=== PATIENT | female | born 1990 | race Caucasian/White ===

== ENCOUNTER 2018-01-04 20:47 | Emergency (ER) | payer OTHER ==
[~2018-01-04] VITALS: Ht 162.6 cm; Wt 100.6 kg
[2018-01-04 21:58] LABS: HEMATOCRIT 43.8 % (36.0-46.0); HEMOGLOBIN 14.6 G/DL (11.9-15.5); MCH 28.7 PG (29.0-34.0); MCHC 33.3 G/DL (30.0-36.0); MCV 86.1 FL (83-99); RBC DIS.WIDTH-CV 13.3 % (11.8-14.6); RBC DIS.WIDTH-SD 41.6 % (39-53); RED BLOOD COUNT 5.09 M/uL (3.80-5.20); WHITE BLOOD COUNT 13.2 K/uL (4.1-10.2)
[2018-01-04 22:12] LABS: ALBUMIN 4.1 g/dL (3.2-4.8); CHLORIDE 101 mEq/L (99-109); POTASSIUM 4.2 mEq/L (3.7-5.4); SODIUM 138 mEq/L (136-147)
[2018-01-04 22:15] LABS: GLUCOSE 87 mg/dL (70-99); TOTAL PROTEIN 8.1 g/dL (6.4-8.3)
[2018-01-04 22:17] LABS: TOTAL BILIRUBIN 0.2 mg/dL (0.0-1.0)
[2018-01-04 22:18] LABS: ALKALINE PHOSPHATASE 79 IU/L (3-129); CREATININE 0.8 mg/dL (0.6-1.3); GFR ESTIMATE (CALCULATED) > 59 mL/min/
[2018-01-04 22:19] LABS: UREA NITROGEN (BUN) 12 mg/dL (9-23)
[2018-01-04 22:20] LABS: AST (GOT) 27 IU/L (2-34)
[2018-01-04 22:21] LABS: ALT (GPT) 15 IU/L (3-49)
[2018-01-04 22:22] LABS: LIPASE 41 U/L (1.0-51.0)
[2018-01-04 22:31] LABS: QUANTITATIVE HCG < 4.0 MIU/ML
[2018-01-04 23:00] LABS: PLAT.SUFFICIENCY INCREASED; PLATELET CLUMPS PRESENT - PLATELET COUNT APPEARS INCREASED; PLATELET COUNT UNABLE TO REPORT K/uL (156-360)
[2018-01-05 01:41] LABS: APPEARANCE CLEAR ((CLEAR)); BILIRUBIN NEGATIVE; BLOOD NEGATIVE; COLOR STRAW ((YELLOW)); GLUCOSE (STRIP) NEGATIVE; KETONES NEGATIVE; LEUKOCYTES NEGATIVE; NITRITE NEGATIVE; PROTEIN (STRIP) NEGATIVE; SPECIFIC GRAVITY 1.009 (1.000-1.030); UCUL ADDED? NO; UROBILINOGEN 0.2 MG/DL (0.2-1.0)
[2018-01-05] MEDS ORDERED: PERCOCET 5/31 TABLET PO (03:11)
[2018-01-05] MEDS ORDERED: GABAPENTIN100 MG PO (03:11)
[2018-01-05 03:19] VITALS: BP 135/89
== END 2018-01-05 03:20 | disposition home or self-care (01) ==
LOC: EME 20:47
DX: R10.33 Periumbilical pain (principal); G89.29 Other chronic pain; Z87.19 Personal history of other diseases of the digestive system
CPT/HCPCS: 74177; 80053; 81003; 83605; 83690; 84702; 85027; 99281; 99284; J2270; J2405; J3010; J7030